=== PATIENT | female | born 1945 | race Caucasian/White ===

== ENCOUNTER → 2021-04-03 | Day surgery (SDC) | payer OTHER ==
[~2021-04-03] VITALS: Ht 160 cm; Wt 74.8 kg
[~2021-04-03] MED LIST: CALCIUM500 MG PO; CARAFATE1 GM PO; CENTRUM SILVER1 EAC5 PO; FISH OIL 1,0001 EAC9 PO; GLUCOSAMINE CH1 EAC2 PO; LUTEIN-ZEAXANT1 EACH PO; NORCO7.5 PO; OMEPRAZOLE40 MG PO; PROAIR HFA8.5 GM INH; PROBIOTIC1 EAC7 PO; PROZAC20 M1 PO; TIMOLOL MALEATE5 M2 OPHTHALMIC; TYLENOL COLD &1 EACH PO; ZOCOR20 MG PO
--- NOTE | ~2021-04-03 | O ---
[facility] [place] [address] OPERATIVE REPORT Name: ELLA HUTCHINSON Room #: REG [facility]..#: [id number] Admission: 04/03/21 Attend Phys: Mil Barillas MD Discharge: Date of : 43 Report #: [id number] THIS REPORT FOR: cc: JACKLYN REY, Mil Quinonez MD ~ cc: Jacklyn Rey D.O. 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 PROCEDURE: Left transconjunctival lower lid and cheek lift with extensive left permanent lateral tarsorrhaphy. SURGEON: Mil Barillas MD TSA SCREENER: None. ANESTHESIA: MAC. COMPLICATIONS: None. INDICATIONS FOR SURGERY: This pleasant 75-year-old woman has a complex left problem with corneal exposure, lagophthalmos, lid retraction and orbital lipoatrophy. She has undergone prior ocular surgery, which may contribute to some degree to this problem. She presents today for a left transconjunctival lower lid and cheek lift combined with a permanent lateral tarsorrhaphy to attempt to improve her long-term ocular surface milieu and reduce her risk for loss of her eye. Informed consent was obtained to include but not limited to the potential risk for loss of vision, bleeding, infection, failure to improve the problem, the potential need for further surgery or treatment. DESCRIPTION OF PROCEDURE: The patient was taken to the operating room where 2% Xylocaine with epinephrine mixed with equal parts 0.75% Marcaine with Wydase was administered transcutaneously and transconjunctivally to the left upper lid, the left lateral canthus, left lower lid and the left cheek. The patient was subsequently prepped and draped in the usual sterile fashion. The left lower lid was initially approached transconjunctivally with an incision below the inferior border of the tarsal plate. The dissection was then carried down into the premalar tissues utilizing sharp techniques. Hemostasis was then [address] [address] OPERATIVE REPORT Name: ELLA HUTCHINSON Room #: REG [facility] M.R.#: [id number] Admission: 04/03/21 Attend Phys: Mil Barillas MD Discharge: Date of : 43 Report #: [id number] reachieved. The lower lid and cheek tissues were then resuspended as they were elevated with interrupted 6-0 Vicryl sutures. The lower lid and cheek elevated well. Most of the elevation was accomplished laterally to still allow her to see more medially. The left upper lid was then everted and an incision made below the superior border of the tarsal plate. The upper lid retractors were then recessed in this area. Hemostasis was reachieved. The lid margin was then denuded anterior to the lashes over the lateral one-third of the upper and lower lid. Pretarsal incisions were then made in the central portion of this denuded area and the left upper and lower lid. Hemostasis was then re-achieved. An extensive neip-hcar-[id number] lateral tarsorrhaphy was then accomplished with multiple passes from a 6-0 Vicryl suture, ensuring an extensive adhesion. Hemostasis was reachieved. Those incisions were then closed in the pretarsal space in the upper and lower lid with interrupted 6-0 plain gut sutures. The wounds were then cleaned and dressed with bacitracin ophthalmic ointment. The patient subsequently transported to the recovery area having tolerated the procedures well with no anesthetic or operative complications being noted. By: [id number] Mil Barillas MD /nt
[2021-04-03 09:34] VITALS: BP 120/63
== END | disposition home or self-care (01) ==
LOC: OR 07:46
PROVIDERS: ATTEND Ophthalmology
DX: H02.535 Eyelid retraction left lower eyelid (principal); H02.205 Unspecified lagophthalmos left lower eyelid; H16.002 Unspecified corneal ulcer, left eye; J45.909 Unspecified asthma, uncomplicated; E78.00 Pure hypercholesterolemia, unspecified; Z79.899 Other long term (current) drug therapy; Z20.822 Contact with and (suspected) exposure to COVID-19; Z98.890 Other specified postprocedural states; Z85.3 Personal history of malignant neoplasm of breast; Z88.8 Allergy status to other drugs, medicaments and biological substances
CPT/HCPCS: 50010; 50101; 50386; 50398; 51636; 62110; 62850; 70005